=== PATIENT | female | born 1985 | race Two or more races ===

== ENCOUNTER 2023-08-11 13:11 | Emergency (ER) | payer OTHER ==
[~2023-08-11] VITALS: Ht 167.6 cm; Wt 79.4 kg
[2023-08-11] MEDS ORDERED: LORAZEPAM 1 MG TABLET ONE (14:59)
[2023-08-11] MEDS: LORAZEPAM 1 MG TABLET PO ONE (15:03)
[2023-08-11] MEDS ORDERED: LORA-259 PO (17:06)
[2023-08-11 17:14] VITALS: BP 128/78; TEMP 98.4; O2SAT 97
== END 2023-08-11 17:14 | disposition home or self-care (01) ==
LOC: ER 13:15
DX: F41.9 Anxiety disorder, unspecified (principal); J45.909 Unspecified asthma, uncomplicated